=== PATIENT | female | born 1950 | race Hispanic/Latino ===

== ENCOUNTER → 2022-05-23 | Outpatient (RCR) | payer OTHER ==
[~2022-05-23] MED LIST: CLINDAMYCIN HC150 MG PO; DIOVAN80 MG PO; FUROSEMIDE40 MG PO; GABAPENTIN300 MG PO; IBUPROFEN400 MG PO; LISINOPRIL2.5 MG PO; METFORMIN HCL500 MG PO; OMEPRAZOLE40 MG PO; OXYBUTYNIN CHLOR5 MG PO; SIMVASTATIN20 MG PO
== END ==
LOC: PT 05-14 14:38
PROVIDERS: ATTEND Specialist
DX: S83.222A Peripheral tear of medial meniscus, current injury, left knee, initial encounter (principal)

== ENCOUNTER 2022-06-13 08:56 | Outpatient (RCR) | payer OTHER | END 2022-06-23 | LOC: PT 08:56 | PROVIDERS: ATTEND Specialist | DX: S83.222A Peripheral tear of medial meniscus, current injury, left knee, initial encounter (principal) ==